=== PATIENT | male | born 1935 | race Caucasian/White ===

== ENCOUNTER 2018-12-14 19:35 | Emergency (ER) | payer OTHER, MEDICARE ==
--- NOTE | 2018-12-14 22:45 | ER Document Report ---
ED General - General Chief Complaint: Back Pain Stated Complaint: BACK PAIN Time Seen by Provider: 12/14/18 22:33 TRAVEL OUTSIDE OF THE [place] IN LAST 30 DAYS: No - HPI Notes: 83-year-old male with history of hypertension, diabetes, hyperlipidemia to the emergency department with complaints of right sided lower back pain for the past several days that has been getting worse. States that on Thursday he was walking in his yard and he stepped into a hole. States he did not fall but he struggled to keep himself upright. After that his back started to hurt himself. But it has gotten progressively worse. Hurts more with rising from sitting to standing, rolling over in the bed, twisting. He has tried salon pas patches [id number] but has not tried any other pain medicine. Denies any bladder or bowel incontinence, radiculopathy, saddle paresthesia, fevers. He does not use IV drugs. - Related Data Allergies/Adverse Reactions: No Known Allergies Allergy (Verified 12/14/18 19:48) Past Medical History - General Information source: Patient, Relative - Social History Smoking Status: Former Smoker Frequency of alcohol use: None Drug Abuse: None Family History: Reviewed & Not Pertinent, Hypertension Patient has suicidal ideation: No Patient has homicidal ideation: No - Past Medical History Cardiac Medical History: Reports: Hx Hypercholesterolemia, Hx Hypertension Renal/ Medical History: Denies: Hx Peritoneal Dialysis Past Surgical History: Reports: Hx Oral Surgery Review of Systems - Review of Systems Constitutional: denies: Chills, Fever EENT: No symptoms reported Cardiovascular: denies: Chest pain, Palpitations, Syncope, Dizziness, Lightheaded Respiratory: denies: Cough, Short of breath Gastrointestinal: denies: Abdominal pain, Diarrhea, Nausea, Vomiting Genitourinary: denies: Frequency, Flank pain, Hematuria, Incontinence, Urgency, Retention Musculoskeletal: Back pain. denies: Neck pain, Deformity Skin: No symptoms reported Neurological/Psychological: No symptoms reported -: Yes All other systems reviewed and negative Physical Exam - Vital signs Vitals: Temp Pulse Resp BP Pulse Ox 98.5 F 96 18 136/90 H 93 12/14/18 19:59 12/14/18 19:59 12/14/18 19:59 12/14/18 19:59 12/14/18 19:59 Interpretation: Normal, Hypertensive - General General appearance: Appears well In distress: None Notes: Sitting in wheelchair. Patient is able to rise out of wheelchair and stand on his own without assistance. He does have some increased pain when he is going from sitting to standing. After he gets to a standing position he can walk around the exam room without any difficulties or pain. Looks younger than stated age. Patient is obviously very active for his age and is very insightful when discussing his back. - HEENT Head: Normocephalic, Atraumatic Eyes: Normal Pupils: PERRL - Respiratory Respiratory status: No respiratory distress Chest status: Nontender Breath sounds: Normal Chest palpation: Normal - Cardiovascular Rhythm: Regular Heart sounds: Normal auscultation Murmur: No - Abdominal Inspection: Normal Distension: No distension Bowel sounds: Normal Tenderness: Nontender Organomegaly: No organomegaly - Back Back: Tender - There is mild tenderness to palpation over the left lumbar paraspinals with noted muscle spasm. There is no midline tenderness to palpation over the cervical, thoracic, lumbar midline spine. There is no step- off or deformity. There is negative straight leg raise. No: Deformity/step- off, CVA tenderness, Vertebra tenderness - Extremities General upper extremity: Normal inspection, Nontender, Normal color, Normal ROM, Normal temperature General lower extremity: Normal inspection, Nontender, Normal color, Normal ROM, Normal temperature, Normal weight bearing. No: Aneudy's sign - Neurological Neuro grossly intact: Yes Cognition: Normal Orientation: AAOx4 [place] Coma Scale Eye Opening: Spontaneous [place] Coma Scale Verbal: Oriented [place] Coma Scale Motor: Obeys Commands [place] Coma Scale Total: 15 Speech: Normal Motor strength normal: LUE, RUE, LLE, RLE Sensory: Normal - Psychological Associated symptoms: Normal affect, Normal mood - Skin Skin Temperature: Warm Skin Moisture: Dry Skin Color: Normal Course - Re-evaluation Re-evalutation: 12/15/18 impression: Right-sided lumbar paraspinal strain and muscle spasm. There is no midline tenderness to palpation and there are no symptoms for emergent back pathology. No bladder bowel incontinence, no no retention, no saddle paresthesia, no radiculopathy. He can get up and stand and walk in the exam room without assistance. Plan will be to send home with pain medicine and muscle relaxant. We will have him apply warm compresses to the back. We will have him do gentle stretching. I have given him strict precautions to return if any bladder or bowel incontinence, retention, saddle paresthesia, radiculopathy. We will have him follow with primary care. Patient and his agree with the plan. - Vital Signs Vital signs: Temp Pulse Resp BP Pulse Ox 98.5 F 96 18 136/90 H 93 12/14/18 19:59 12/14/18 19:59 12/14/18 19:59 12/14/18 19:59 12/14/18 19:59 Discharge - Discharge Clinical Impression: Lumbar paraspinal muscle spasm, Strain of lumbar paraspinal muscle Condition: Stable Disposition: HOME, SELF-CARE Instructions: Low Back Pain ([facility]), Muscle Strain ([facility]), Warm Packs ([facility]) Additional Instructions: TAKE MEDICINE PRESCRIBED. RETURN IF ANY FEVERS, WORSENING PAIN, EXTREMITY WEAKNESS, BLADDER/BOWEL INCONTINENCE, NUMBNESS/TINGLING AROUND RECTUM OR UPPER THIGH. FOLLOW UP WITH PRIMARY CARE BY END OF THE WEAK. REST -- DO NOT LIFT ANYTHING HEAVIER THAN A GALLON OF MILK FOR THE NEXT 7 DAYS. GENTLE STRETCHING. HEAT THREE TIMES A DAY FOR NO LONGER THAN 20 MINUTES. Prescriptions: Cyclobenzaprine HCl [Flexeril 5 mg Tablet] 5 - 10 mg PO TID #21 tablet Lidocaine [Lidoderm 5% (700 mg) Transdermal Patch] 1 patch TP DAILY #30 adh..patch Naproxen [Naprosyn] 500 mg PO BID #20 tablet
[2018-12-14] MEDS ORDERED: KETOROLAC TROMETHAMINE 60 MG/2 ML SDV IM ONE (22:46)
[2018-12-14] MEDS ORDERED: CYCLOBENZAPRINE HCL 10 MG TABLET PO ONE (22:46)
[2018-12-15 05:28] VITALS: BP 132/98
== END 2018-12-14 23:15 | disposition home or self-care (01) ==
LOC: ER 19:35
DX: S39.012A Strain of muscle, fascia and tendon of lower back, initial encounter (principal); M54.9 Dorsalgia, unspecified; M62.830 Muscle spasm of back; W17.2XXA Fall into hole, initial encounter; Y92.007 Garden or yard of unspecified non-institutional (private) residence as the place of occurrence of the external cause; I10 Essential (primary) hypertension; E11.9 Type 2 diabetes mellitus without complications; Z87.891 Personal history of nicotine dependence
CPT/HCPCS: 99283; 96372; J1885

== ENCOUNTER → 2020-06-15 | Outpatient (CLI) | payer MEDICARE ==
--- NOTE | 2020-06-15 11:34 | ER RDC ASSESSMENT REPORT ---
Intake - In the Last 14 days Have you traveled outside [place]?: No Have you been in close contact with someone CONFIRMED: Yes Worked in Healthcare?: No - Symptoms Subjective Fever([place] feverish): No Chills: No Muscule Aches: No Runny Nose: No Sore Throat: No Cough (New or worsening chronic cough): No Shortness of breath: No Nausea or Vomiting: No Headache: No Abdominal Pain: No Diarrhea(3 or more loose stools in last 24 hours): No - Do you have any of the following Chronic lung disease: Asthma or emphysema or COPD: No Cystic Fibrosis: No Diabetes: No High Blood Pressure: Yes Cardiovascular Disease: No Chronic Kidney Disease: No Chronic Liver Disease: No Chronic blood disorder like Sickle Cell Disease: No Weak immune system due to disease or medication: No Neurologic condition that limits movement: No Developmental delay - Moderate to Severe: No Morbid Obesity (>100 pounds over ideal weight): No - Objective Temperature: 99.0 F Pulse Rate: 93 Respiratory Rate: 17 Blood Pressure: 131/74 O2 Sat by Pulse Oximetry: 92 Objective: Given above, testing performed: covid General - General Stated Complaint: Asymptomatic Covid screen Time Seen by Provider: 06/15/20 11:00 Mode of Arrival: Ambulatory Information source: Patient - [facility] Notes: Patient presents to clinic for COVID-19 testing after coming in close contact with another COVID 19 positive individual. Patient is asymptomatic. They deny any cough, shortness of breath, fever, chills, muscle aches, rhinorrhea, sore throat, nausea or vomiting, headache, abdominal pain or diarrhea. Patient has no acute medical concerns. - Related Data Allergies/Adverse Reactions: No Known Allergies Allergy (Verified 12/14/18 19:48) Past Medical History - General Information source: Patient - Social History Smoking Status: Never Smoker Family History: Reviewed & Not Pertinent, Hypertension - Past Medical History Cardiac Medical History: Reports: Hx Hypercholesterolemia, Hx Hypertension Pulmonary Medical History: Reports: None EENT Medical History: Reports: None Neurological Medical History: Reports: None Endocrine Medical History: Reports: None Renal/ Medical History: Reports: None. Denies: Hx Peritoneal Dialysis Malignancy Medical History: Reports None GI Medical History: Reports: None Musculoskeletal Medical History: Reports None Skin Medical History: Reports None Psychiatric Medical History: Reports: None Traumatic Medical History: Reports: None Infectious Medical History: Reports: None Past Surgical History: Reports: Hx Oral Surgery Physical Exam - General General appearance: Appears well, Alert In distress: None Notes: PHYSICAL EXAMINATION: GENERAL: Well-appearing and in no acute distress. HEAD: Atraumatic, normocephalic. EYES: sclera anicteric, conjunctiva are normal. ENT: nares patent. Moist mucous membranes. NECK: Normal range of motion, supple without lymphadenopathy. LUNGS: No increased work of breathing. Lung sounds CTAB and equal. No wheezes rales or rhonchi. HEART: Regular rate and rhythm without murmurs. ABDOMEN: Soft, nontender, normal bowel sounds, no guarding. EXTREMITIES: Normal range of motion, no pitting edema. No cyanosis. NEUROLOGICAL: A&O x 3. Normal speech. PSYCH: Normal mood, normal affect. SKIN: Warm, Dry, normal turgor, no rashes or lesions noted Patient Education/Counseling Counseling/Education: Patient presents for COVID 19 testing after close exposure to another person who has tested positive for COVID 19. Patient is asymptomatic at this time. Patient does not have emergency worrying symptoms such as difficulty breathing, shortness of breath, chest pain, pressure, confusion or cyanosis. Patient appears suitable for discharge as vital signs are stable and patient is nontoxic in appearance. Good return precautions have been discussed with patient, p atient verbalized understanding and is agreeable with discharge plan of care at this time. Guidance for worsening S/SX: As a person under investigation for Covid 19, the [place] department of Health and Human Services, division of public health advises you to adhere to the following guidance until your test results are reported to you. If your test result is positive, you will receive additional information from your provider and your local health department at that time. Remain at home until you are cleared by the health provider or public health authorities. Keep a log of visitors to your home, notify any visitors to your home of your isolation status. If you plan to move to a new address or leave the county, notify the local health department in your County. Call your doctor or seek care if you have an urgent medical need. Before seeking medical care, call ahead to get instructions from the provider before arriving at the medical office clinic or hospital. Notify them that you are being tested for the virus that causes Covid 19 so that arrangements can be made, as necessary, to prevent transmission to others in the healthcare setting. Next, notify the local health department in your county. If a medical emergency arises and you need to call 911, inform the first responders that you are being tested for the virus that causes Covid 19. Next, notify the local health department in your county. RDC Discharge - Discharge Clinical Impression: Encounter for screening laboratory testing for COVID-19 virus in asymptomatic patient Condition: Good Disposition: Home; Selfcare
[2020-06-15 11:35] VITALS: BP 131/74
== END ==
LOC: RDC 10:34
PROVIDERS: ATTEND Registered Nurse
DX: Z20.822 Contact with and (suspected) exposure to COVID-19 (principal); I10 Essential (primary) hypertension; E78.00 Pure hypercholesterolemia, unspecified
CPT/HCPCS: U0003; C9803; 87635; 99202; 99211